=== PATIENT | female | born 1950 | race Caucasian/White ===

== ENCOUNTER 2023-02-24 18:38 | Inpatient (IN) | payer MEDICARE, OTHER, SELFPAY ==
[2023-02-24] VITALS (7 sets, daily range): BP systolic 90–136; BP diastolic 56–89; PULSE 69–98; RESP 16–20; TEMP 36.7–37.8; O2SAT 94–96; BMI 19.4
--- NOTE | ~2023-02-24 | CT_ITS ---
EXAMINATION: CT head/brain wo IV con CLINICAL INFORMATION: Reason for Exam AMS COMPARISON: None. TECHNIQUE: Contiguous axial imaging was performed from the skull base to vertex without intravenous contrast. Sagittal and coronal reformatted images were obtained. This CT examination was performed using dose optimization techniques as appropriate, variously including the following: * Automated exposure control * Adjustment of mA and/or kV according to patient size (this includes techniques or standardized protocols for targeted exams where dose is matched to indication/reason for exam; i.e. extremities or head) Use of iterative reconstruction technique DLP: 666 mGy-cm FINDINGS: No acute osseous or soft tissue abnormality. The mastoid air cells and visualized portions of the paranasal sinuses are well aerated. There is no evidence of acute intracranial hemorrhage or territorial infarction. No abnormal mass effect or midline shift is seen. Bird to white matter differentiation is well preserved. No extra-axial fluid collections are identified. No hydrocephalus. Proportional prominence of the ventricles and sulcal spaces is consistent with moderate volume loss. Patchy periventricular and deep white matter hypoattenuation is consistent with mild small vessel ischemic changes. CT/CT head/brain wo IV con IMPRESSION: No acute intracranial abnormality including hemorrhage, mass effect, hydrocephalus, or acute territorial edematous infarction.
--- NOTE | ~2023-02-24 | XR_ITS ---
EXAMINATION: XR CHEST CLINICAL INFORMATION: Fever. COMPARISON: None available. TECHNIQUE: Frontal view of the chest was obtained. FINDINGS: Normal appearance of the cardiomediastinal silhouette. No focal airspace opacity, pleural effusion or pneumothorax. No pulmonary edema. No acute osseous findings. Visualized upper abdomen is within normal limits. XR/XR chest 1V IMPRESSION: No acute cardiopulmonary findings.
--- NOTE | 2023-02-24 18:51 | ECG_ITS ---
Test Reason : AMS Blood Pressure : / mmHG Vent. Rate : 125 BPM Atrial Rate : 129 BPM P-R Int : 000 ms QRS Dur : 058 ms QT Int : 366 ms P-R-T Axes : -35 035 068 degrees QTc Int : 528 ms Poor data quality Undetermined rhythm Low voltage QRS Cannot rule out Anterior infarct , age undetermined Abnormal ECG No previous ECGs available Repeat EKG Referred By: Samantha Shah Electronically Signed By:WILLEM DIALLO MD
--- NOTE | 2023-02-24 18:55 | ED_ITS ---
HPI - General Adult General Chief complaint: Altered Mental Status Stated complaint: sepsis alert,ethargic,100.8 temp,AMS Time Seen by Provider: 02/24/23 18:40 Source: EMS Mode of arrival: EMS Limitations: no limitations History of Present Illness HPI narrative: Patient comes to the emergency room via ambulance from a longterm facility. Patient had baseline does not talk much, has dementia but at baseline she is able to sit in her chair and speak. Today, the staff noted that the patient is very lethargic, in bed, difficult to arouse. Patient occasionally opens her eyes. Patient is a DNR DNI, no CPAP but do transfer to hospital. Patient is too weak and lethargic to give any history. According to EMS, the patient had a fever earlier today of 101 Related Data Allergies Allergy/AdvReac Type Severity Reaction Status Date / Time No Known Allergies Allergy Verified 02/24/23 19:14 Review of Systems 2 Review of Systems: Yes Unobtainable due to mental condition PMFSH Past Medical History Medical History (Updated 02/24/23 @ 21:18 by Samantha Shah MD) Dementia Social History Social History Advance Directives: No Advance Directives Information Provided: No Physical Exam ED Vital Signs: Vital Signs - 24 hr 02/24/23 19:00 02/24/23 19:22 02/24/23 19:58 Temperature 100.1 F 98.1 F Pulse Rate 92 85 77 Respiratory Rate 18 18 16 Blood Pressure 110/66 136/68 119/71 Pulse Oximetry 94 96 95 Oxygen Delivery Method Room Air Room Air Room Air BMI result Body Mass Index 19.4 Const Other: Appearance: Lethargic, arousable to voice, opens eyes and falls back asleep Eyes: Pupils equal, round and reactive to light. ENT: Pharynx normal. Dry oral mucosa Neck: Normal inspection. Neck supple. No lymph nodes noted. No crepitus CVS: Normal heart rate and rhythm. Pulses normal. Normal S1 and S2 Respiratory: No respiratory distress. Breath sounds normal. No Wheezing. No rales Abdomen: Soft and nontender. No rigidity. No distention. Skin: Skin warm and dry. Normal skin color. Normal skin turgor. Extremities: No lower extremity edema. No Lacerations. No Rash Neuro: Lethargic, unable to participating cranial nerve assessment Psych: calm, charge Medications Administered Generic Name Dose Route Start Last Admin Trade Name Freq PRN Reason Stop Dose Admin Potassium Chloride 10 meq in 100 mls @ 100 mls/hr 02/24/23 20:00 02/24/23 20:02 Potassium Chloride/H20 IV 02/24/23 23:59 100 mls/hr Q1H DHRUV Administration Discontinued Medications Generic Name Dose Route Start Last Admin Trade Name Marina PRN Reason Stop Dose Admin Acetaminophen 650 mg 02/24/23 18:54 02/24/23 19:42 Acetaminophen Supp 650 Mg Supp.Rect AK 02/24/23 18:55 650 mg ONCE ONE Administration Sodium Chloride 2,000 mls @ 999 mls/hr 02/24/23 18:50 02/24/23 19:15 Ns IVCONT 02/24/23 20:50 999 mls/hr .Q2H1M ONE Administration Ceftriaxone Sodium 1 gm/ 50 mls @ 100 mls/hr 02/24/23 19:48 02/24/23 20:49 Sodium Chloride IV 02/24/23 20:17 Infused ONCE ONE Infusion Medical Decision Making Medical Decision Making [facility] Narrative: -at this time, 19:49, we have the lab result available. -my interpretation of labs: White blood cell count within normal limits, lactic acid 2.5. Patient has hypokalemia, hypernatremia, BUN elevated. -patient was repleted with fluids, patient dehydrated, also given IV potassium, urinalysis shows about oxycodone in the urine, no nitrites or leukocyte esterase. Given the patient's fever, we will go ahead and treat [place] antibiotics. Patient was given 1 dose of IV ceftriaxone. -interpretation of chest x-rays: No pneumonia -urinalysis very questionable for urinary tract infection. Given patient's symptoms and no other source of infection, we will go ahead and treat with antibiotics and IV fluids. -I discussed the patient with Dr. Weston, patient being admitted Differential Diagnosis Differential Diagnoses: The differential diagnosis associated with the presentation includes (UTI, pneumonia, TIA, CVA) Admission/Observation Consideration of admission/observation: Escalation of care including admission/observation considered Consult Healthcare Provider Management of the patient was discussed with: Hospitalist Lab Data [facility] Lab Attestation statement: I reviewed the patient's lab results. 02/24/23 19:07 02/24/23 19:07 Labs: Lab Results 02/24/23 02/24/2323 Range/Units 19:07 19:08 19:10 WBC 9.0 (4.8-10.8) X10*3/uL RBC 3.94 L (4.20-5.50) X10*6/uL Hgb 13.0 (12.0-16.0) g/dl Hct 39.5 (37.0-47.0) % MCV 100.3 H (80.0-98.0) fL MCH 33.0 (27.0-33.0) pg MCHC 32.9 (31.0-35.0) g/dl RDW 12.5 (11.0-16.0) % Plt Count 250 (160-400) X10*3/uL MPV 11.4 (9.4-12.3) fL Immature Gran % (Auto) 0.3 (0.0-0.4) % Neut % (Auto) 79.2 H (45-73) % Lymph % (Auto) 13.5 L (20-40) % [place] % (Auto) 6.2 (2-11) % Eos % (Auto) 0.1 (0-4) % Baso % (Auto) 0.7 (0-2) % Lymph # (Auto) 1.2 (1.2-4.9) X10*3/uL [place] # (Auto) 0.6 (0.1-1.2) X10*3/uL Eos # (Auto) 0.0 (0.0-0.4) X10*3/uL Baso # (Auto) 0.1 (0.0-0.2) X10*3/uL Abs Immat Gran (auto) 0.03 (0.00-0.03) X10*3/uL Absolute Neuts (auto) 7.1 (2.0-8.3) x10*3/uL Absolute Nucleated RBC 0.000 (0.0-0.012) X10*3/uL Nucleated RBC % (auto) 0.0 (0.0-0.2) /100WBC PT 13.1 (11.1-13.3) SEC INR 1.1 (0.9-1.1) VBG pH (7.32-7.43) VBG pCO2 mmHg VBG pO2 mmHg VBG HCO3 (22-26) mmol/L VBG O2 Saturation % VBG Base Excess mmol/L Sodium 148 H (135-145) mmol/L Potassium 3.0 L (3.3-5.1) mmol/L Chloride 116 H (96-108) mmol/L Carbon Dioxide 25 (22-29) mmol/L Anion Gap 10 L (12-20) BUN 49 H (9-16) mg/dL Creatinine 0.72 (0.5-1.4) mg/dL Estim Creat Clear Calc 62.6 Estimated GFR > 60 Random Glucose 185 H (60-115) mg/dL Lactic Acid 2.5 H* (0.5-2.0) mmol/L Calcium 8.7 (8.4-10.2) mg/dL Magnesium 2.6 (1.6-2.6) mg/dL Total Bilirubin 1.2 H (0.0-1.0) mg/dL Direct Bilirubin 0.3 (0.0-0.5) mg/dL AST 36 H (5-31) U/L ALT 24 (0-31) U/L Alkaline Phosphatase 61 (39-117) U/L Ammonia 34 (13-55) umol/L Troponin I High Sens 10.3 (<3.5-17.0) ng/L Total Protein 6.3 L (6.5-8.0) g/dL Albumin 3.7 (3.5-5.0) g/dL Lipase 24 (8-78) U/L Urine Color Yellow Urine Appearance Clear Urine pH 6.0 (5.0-9.0) Ur Specific [place] >= 1.030 H (1.005-1.025) Urine Protein Trace (Neg-Trace) mg/dL Urine Glucose (UA) Negative (Negative) mg/dL Urine Ketones Trace (Negative) mg/dL Urine Blood Trace H (Negative) Urine Nitrite Negative (Negative) Ur Leukocyte Esterase Negative (Negative) Urine RBC 6-10 H (0-2) /HPF Urine WBC 6-10 H (0-5) /HPF Ur Squamous Epith Cells 0-2 (0-2) /HPF Urine Bacteria None Seen (None Seen) Hyaline Casts 0-2 (0-2) /LPF Urine Opiates Screen Not Detected (Not Detect) Urine Fentanyl Screen Not Detected (Not Detect) Ur Barbiturates Screen Not Detected (Not Detect) Ur Phencyclidine Scrn Not Detected (Not Detect) Ur Amphetamines Screen Not Detected (Not Detect) U Benzodiazepines Scrn Not Detected (Not Detect) Urine Cocaine Screen Not Detected (Not Detect) U Marijuana (THC) Screen Not Detected (Not Detect) COVID-19 (ADY) Negative (Negative) COVID-19 Clin Com See Note Influenza Type A (KAYCEE) Negative (Negative) Influenza Type B (KAYCEE) Negative (Negative) Influenza A & B Note See Note 02/24/23 Range/Units 19:14 WBC (4.8-10.8) X10*3/uL RBC (4.20-5.50) X10*6/uL Hgb (12.0-16.0) g/dl Hct (37.0-47.0) % MCV (80.0-98.0) fL MCH (27.0-33.0) pg MCHC (31.0-35.0) g/dl RDW (11.0-16.0) % Plt Count (160-400) X10*3/uL MPV (9.4-12.3) fL Immature Gran % (Auto) (0.0-0.4) % Neut % (Auto) (45-73) % Lymph % (Auto) (20-40) % [place] % (Auto) (2-11) % Eos % (Auto) (0-4) % Baso % (Auto) (0-2) % Lymph # (Auto) (1.2-4.9) X10*3/uL [place] # (Auto) (0.1-1.2) X10*3/uL Eos # (Auto) (0.0-0.4) X10*3/uL Baso # (Auto) (0.0-0.2) X10*3/uL Abs Immat Gran (auto) (0.00-0.03) X10*3/uL Absolute Neuts (auto) (2.0-8.3) x10*3/uL Absolute Nucleated RBC (0.0-0.012) X10*3/uL Nucleated RBC % (auto) (0.0-0.2) /100WBC PT (11.1-13.3) SEC INR (0.9-1.1) VBG pH 7.53 H (7.32-7.43) VBG pCO2 30 mmHg VBG pO2 148 mmHg VBG HCO3 26 (22-26) mmol/L VBG O2 Saturation 100.0 % VBG Base Excess 4.1 mmol/L Sodium (135-145) mmol/L Potassium (3.3-5.1) mmol/L Chloride (96-108) mmol/L Carbon Dioxide (22-29) mmol/L Anion Gap (12-20) BUN (9-16) mg/dL Creatinine (0.5-1.4) mg/dL Estim Creat Clear Calc Estimated GFR Random Glucose (60-115) mg/dL Lactic Acid (0.5-2.0) mmol/L Calcium (8.4-10.2) mg/dL Magnesium (1.6-2.6) mg/dL Total Bilirubin (0.0-1.0) mg/dL Direct Bilirubin (0.0-0.5) mg/dL AST (5-31) U/L ALT (0-31) U/L Alkaline Phosphatase (39-117) U/L Ammonia (13-55) umol/L Troponin I High Sens (<3.5-17.0) ng/L Total Protein (6.5-8.0) g/dL Albumin (3.5-5.0) g/dL Lipase (8-78) U/L Urine Color Urine Appearance Urine pH (5.0-9.0) Ur Specific [place] (1.005-1.025) Urine Protein (Neg-Trace) mg/dL Urine Glucose (UA) (Negative) mg/dL Urine Ketones (Negative) mg/dL Urine Blood (Negative) Urine Nitrite (Negative) Ur Leukocyte Esterase (Negative) Urine RBC (0-2) /HPF Urine WBC (0-5) /HPF Ur Squamous Epith Cells (0-2) /HPF Urine Bacteria (None Seen) Hyaline Casts (0-2) /LPF Urine Opiates Screen (Not Detect) Urine Fentanyl Screen (Not Detect) Ur Barbiturates Screen (Not Detect) Ur Phencyclidine Scrn (Not Detect) Ur Amphetamines Screen (Not Detect) U Benzodiazepines Scrn (Not Detect) Urine Cocaine Screen (Not Detect) U Marijuana (THC) Screen (Not Detect) COVID-19 (ADY) (Negative) COVID-19 Clin Com Influenza Type A (KAYCEE) (Negative) Influenza Type B (KAYCEE) (Negative) Influenza A & B Note Independent Interpretation I performed an independent interpretation of an: CT Scan (Med the patient of CT scan of the head, no intracranial bleed) Radiology Impression Discussion of test interpretation with radiology: I have reviewed the radiologist's reading. Radiologist Impression: No acute osseous or soft tissue abnormality. The mastoid air cells and visualized portions of the paranasal sinuses are well aerated. There is no evidence of acute intracranial hemorrhage or territorial infarction. No abnormal mass effect or midline shift is seen. Bird to white matter differentiation is well preserved. No extra-axial fluid collections are identified. No hydrocephalus. Proportional prominence of the ventricles and sulcal spaces is consistent with moderate volume loss. Patchy periventricular and deep white matter hypoattenuation is consistent with mild small vessel ischemic changes. CT/CT head/brain wo IV con IMPRESSION: No acute intracranial abnormality including hemorrhage, mass effect, hydrocephalus, or acute territorial edematous infarction Normal appearance of the cardiomediastinal silhouette. No focal airspace opacity, pleural effusion or pneumothorax. No pulmonary edema. No acute osseous findings. Visualized upper abdomen is within normal limits. XR/XR chest 1V IMPRESSION: No acute cardiopulmonary findings. Critical Care Time Critical Care Time Critical Care Time: Yes Total Critical Care Time: 75 Attestation: I have personally provided critical care time. Time includes review of lab data, radiology results, discussion with consultants, and monitoring for potential decompensation. Intervention performed as documented. Discharge Plan Discharge Clinical Impression: Altered mental status, UTI (urinary tract infection), Acute hypokalemia, Acute hypernatremia, Acute dehydration Patient Disposition: Admitted As Inpatient
--- NOTE | 2023-02-24 18:56 | PC.NURSE ---
sepsis alert called overhead. pt meeting initial criteria of elevated temperature and hypotensive upon ems arrival to scene.
--- NOTE | 2023-02-24 19:00 | PC.NURSE ---
pt leona from [facility] for elevated temperature and increased altered mental status. according to [facility] staff pt is altered at baseline with dementia. upon arrival pt was warm to touch with rectal temperature of 100.1. pt unable to respond verbally at this time. pt has dementia at baseline. pt normal sinus on tele -. provider at bedside to assess pt.
--- NOTE | 2023-02-24 19:11 | PC.NURSE ---
pt straight cathed at this time, pt tolerated well. 300ml of dark yellow urine drained at this time.
[2023-02-24] MEDS: 0.9 % Sodium Chloride 2,000 ML 999 ML IVCONT (19:15)
[2023-02-24 19:17] LABS: MANUAL DIFF FLAG NO
[2023-02-24 19:19] LABS: Appearance Urine Clear; Color Urine Yellow; Glucose Urine UA Negative (Negative); Leukocyte Esterase Urine Negative (Negative); Nitrite Urine Negative (Negative); Specific Gravity - Urine >= 1.030 (1.005-1.025); UMIC TRIGGER UACC YES; Urine Blood Trace (Negative); Urine Ketones Trace mg/dL (Negative); Urine Protein Trace mg/dL (Neg-Trace)
[2023-02-24 19:19] LABS: Basophils Absolute Auto 0.1 X10*3/uL (0.0-0.2); Basophils Percent Auto 0.7 % (0-2); Eosinophils Percent Auto 0.1 % (0-4); Hematocrit 39.5 % (37.0-47.0); Imm Gran Abs Auto 0.03 X10*3/uL (0.00-0.03); Imm Gran Pct Auto 0.3 % (0.0-0.4); Lymphocytes Absolute Auto 1.2 X10*3/uL (1.2-4.9); Lymphocytes Percent Auto 13.5 % (20-40); Mean Corpuscular HGB Conc 32.9 g/dl (31.0-35.0); Mean Corpuscular Volume 100.3 fL (80.0-98.0); Mean Platelet Volume 11.4 fL (9.4-12.3); Monocytes Absolute Auto 0.6 X10*3/uL (0.1-1.2); Monocytes Percent Auto 6.2 % (2-11); Neutrophils Absolute Auto 7.1 x10*3/uL (2.0-8.3); Neutrophils Percent Auto 79.2 % (45-73); Platelet Count 250 X10*3/uL (160-400); Red Blood Count 3.94 X10*6/uL (4.20-5.50); Red Cell Distribution Width 12.5 % (11.0-16.0)
[2023-02-24 19:20] LABS: Venous Blood Gas Refer to POC result
[2023-02-24 19:20] LABS: VBG Base Excess 4.1 mmol/L; VBG HCO3 26 mmol/L (22-26); VBG pCO2 30 mmHg; VBG pH 7.53 (7.32-7.43); VBG pO2 148 mmHg
[2023-02-24 19:24] LABS: INTERNATIONAL NORM RATIO 1.1 (0.9-1.1); Prothrombin Time 13.1 SEC (11.1-13.3)
[2023-02-24 19:26] LABS: Ammonia 34 umol/L (13-55)
[2023-02-24 19:34] LABS: COVID-19 Test Negative (Negative); IDNOW Serial# 9DB6401D; IDNOW Serial# BCCEAD1C; Influenza A Negative (Negative); Influenza B2 Negative (Negative)
[2023-02-24 19:34] LABS: Bacteria Urine None Seen (None Seen); Hyaline Casts Urine 0-2 /LPF (0-2); Squamous Epithelial Cell Urine 0-2 /HPF (0-2); UACC Culture Trigger YES
[2023-02-24 19:35] LABS: Lactic Acid 2.5 mmol/L (0.5-2.0)
[2023-02-24 19:36] LABS: Alanine Aminotransferase 24 U/L (0-31); Albumin Level 3.7 g/dL (3.5-5.0); Alkaline Phosphatase 61 U/L (39-117); Anion Gap 10 (12-20); Aspartate Amino Transferase 36 U/L (5-31); Bilirubin Direct 0.3 mg/dL (0.0-0.5); Bilirubin Total 1.2 mg/dL (0.0-1.0); Blood Urea Nitrogen 49 mg/dL (9-16); Calcium 8.7 mg/dL (8.4-10.2); Carbon Dioxide 25 mmol/L (22-29); Chloride 116 mmol/L (96-108); Creatinine Clr Calc Pharmacy 62.6; Estimated Glomerular Filt Rate > 60; Glucose Random 185 mg/dL (60-115); Lipase 24 U/L (8-78); Magnesium 2.6 mg/dL (1.6-2.6); Sodium 148 mmol/L (135-145); Total Protein 6.3 g/dL (6.5-8.0)
[2023-02-24] MEDS: Acetaminophen Supp 650 MG SUPP.RECT PR (19:42)
[2023-02-24 19:43] LABS: Troponin-I High Sensitivity 10.3 ng/L (<3.5-17.0)
--- NOTE | 2023-02-24 19:58 | PC.NURSE ---
hour one sepsis alert called over head, vss.
[2023-02-24] MEDS: cefTRIAXone sodium 1 GM in 0.9 % Sodium Chloride 50 ML IV (20:02)
[2023-02-24] MEDS: Potassium Chloride/H20 10 MEQ/100 ML PIGGYBACK 100 MEQ IV ×4 (20:02→23:32)
--- NOTE | 2023-02-24 20:05 | PC.NURSE ---
pt medicated per mar, pt tolerating well.
[2023-02-24 20:50] LABS: Amphetamine Screen Urine Not Detected (Not Detect); Barbiturates, Urine Not Detected (Not Detect); Benzodiazepines Screen Urine Not Detected (Not Detect); Cannabinoid Screen Urine Not Detected (Not Detect); Cocaine Screen Urine Not Detected (Not Detect); Fentanyl, urine Not Detected (Not Detect); Opiate Screen Urine Not Detected (Not Detect); Phencyclidine Screen Urine Not Detected (Not Detect)
--- NOTE | 2023-02-24 20:57 | PC.NURSE ---
sepsis alert hour two, vss.
[2023-02-24 21:09] LABS: TSH reflex Free T4 25.29 uIU/mL (0.32-4.0)
[2023-02-24 21:15] LABS: Reflex Lactate? Lactic Acid Added
--- NOTE | 2023-02-24 21:17 | P.HPHOSP_ITS ---
History of Present Illness Date of Service: 02/24/23 Chief Complaint: ams, fever 72F PMH alzheimers dementia (director long term care resident of memory unit), hypothryoid presented with fever and ams. brought in [place] for ams, lethargy, fever 101, for one day. at baseline patient is minimally verbal, able to sit up in chair, alert. on presentation was lethargic, difficult to arouse. in ED noted to be dehydrated with bun 49 cr 0.72, sodium 148, elevated tsh 25 (synthroid recently decreased from 100 to 75mcg), ua with wbc, rbc, negative nitrite and bacturia. cxr and cth unremarkable, mental status improved with hydration. Review of Systems 2 Review of Systems: Yes Unobtainable due to mental condition [facility] Medical History Dementia Social History Advance Directives: No Advance Directives Information Provided: No Meds Allergies Allergy/AdvReac Type Severity Reaction Status Date / Time No Known Allergies Allergy Verified 02/24/23 19:14 Active Medications: Current Medications Enoxaparin Sodium (Enoxaparin Sodium 40 Mg/0.4 Ml Syringe) 40 mg SUBCUT Q24H [facility] Potassium Chloride (Potassium Chloride/H20) 10 meq in 100 mls @ 100 mls/hr IV Q1H DHRUV Stop: 02/24/23 23:59 Last Admin: 02/24/23 20:59 Dose: 100 mls/hr Ceftriaxone Sodium 1 gm/ (Sodium Chloride) 50 mls @ 100 mls/hr IV Q24H [facility] Levothyroxine Sodium (Levothyroxine Sodium 100 Mcg Tablet) 100 mcg PO DAILY@0600 [facility] Sodium Chloride (0.9 % Sodium Chloride Flush 3 Ml Syringe) 3 ml IVFLUSH QSHIFT [facility] Physical Exam 2 Vital Signs and Narrative: Vital Signs: Last Vital Signs Temp 98.2 F 02/24/23 20:58 Pulse 84 02/24/23 21:02 Resp 18 02/24/23 21:02 BP 125/81 02/24/23 21:02 Pulse Ox 95 02/24/23 21:02 O2 Del Method Room Air 02/24/23 21:02 BMI result Body Mass Index 19.4 General: lethargic, oriented to name only Resp: CTA bilateral, no accessory muscles used CVS: S1,S2,RRR GI: soft, non tender, non distended Results Labs 02/24/23 19:07 02/24/23 19:07 Labs: Laboratory Results - last 24 hr 02/24/23 02/24/23 02/24/23 19:07 19:08 19:10 MCV 100.3 H MCH 33.0 MCHC 32.9 RDW 12.5 Plt Count 250 MPV 11.4 Immature Gran % (Auto) 0.3 Neut % (Auto) 79.2 H Lymph % (Auto) 13.5 L [place] % (Auto) 6.2 Eos % (Auto) 0.1 Baso % (Auto) 0.7 Lymph # (Auto) 1.2 [place] # (Auto) 0.6 Eos # (Auto) 0.0 Baso # (Auto) 0.1 Abs Immat Gran (auto) 0.03 Absolute Neuts (auto) 7.1 Absolute Nucleated RBC 0.000 Nucleated RBC % (auto) 0.0 PT 13.1 INR 1.1 VBG pH VBG pCO2 VBG pO2 VBG HCO3 VBG O2 Saturation VBG Base Excess Anion Gap 10 L Estim Creat Clear Calc 62.6 Estimated GFR > 60 Random Glucose 185 H Lactic Acid 2.5 H* Calcium 8.7 Magnesium 2.6 Total Bilirubin 1.2 H Direct Bilirubin 0.3 AST 36 H ALT 24 Alkaline Phosphatase 61 Ammonia 34 Total Protein 6.3 L Albumin 3.7 Lipase 24 TSH 25.29 H Urine Color Yellow Urine Appearance Clear Urine pH 6.0 Ur Specific [place] >= 1.030 H Urine Protein Trace Urine Glucose (UA) Negative Urine Ketones Trace Urine Blood Trace H Urine Nitrite Negative Ur Leukocyte Esterase Negative Urine RBC 6-10 H Urine WBC 6-10 H Ur Squamous Epith Cells 0-2 Urine Bacteria None Seen Hyaline Casts 0-2 Urine Opiates Screen Not Detected Urine Fentanyl Screen Not Detected Ur Barbiturates Screen Not Detected Ur Phencyclidine Scrn Not Detected Ur Amphetamines Screen Not Detected U Benzodiazepines Scrn Not Detected Urine Cocaine Screen Not Detected U Marijuana (THC) Screen Not Detected COVID-19 (ADY) Negative COVID-19 Clin Com See Note Influenza Type A (KAYCEE) Negative Influenza Type B (KAYCEE) Negative Influenza A & B Note See Note 02/24/23 19:14 MCV MCH MCHC RDW Plt Count MPV Immature Gran % (Auto) Neut % (Auto) Lymph % (Auto) [place] % (Auto) Eos % (Auto) Baso % (Auto) Lymph # (Auto) [place] # (Auto) Eos # (Auto) Baso # (Auto) Abs Immat Gran (auto) Absolute Neuts (auto) Absolute Nucleated RBC Nucleated RBC % (auto) PT INR VBG pH 7.53 H VBG pCO2 30 VBG pO2 148 VBG HCO3 26 VBG O2 Saturation 100.0 VBG Base Excess 4.1 Anion Gap Estim Creat Clear Calc Estimated GFR Random Glucose Lactic Acid Calcium Magnesium Total Bilirubin Direct Bilirubin AST ALT Alkaline Phosphatase Ammonia Total Protein Albumin Lipase TSH Urine Color Urine Appearance Urine pH Ur Specific [place] Urine Protein Urine Glucose (UA) Urine Ketones Urine Blood Urine Nitrite Ur Leukocyte Esterase Urine RBC Urine WBC Ur Squamous Epith Cells Urine Bacteria Hyaline Casts Urine Opiates Screen Urine Fentanyl Screen Ur Barbiturates Screen Ur Phencyclidine Scrn Ur Amphetamines Screen U Benzodiazepines Scrn Urine Cocaine Screen U Marijuana (THC) Screen COVID-19 (ADY) COVID-19 Clin Com Influenza Type A (KAYCEE) Influenza Type B (KAYCEE) Influenza A & B Note Imaging Radiologist's Impressions: Impressions Chest X-Ray 02/24/23 19:20 IMPRESSION: No acute cardiopulmonary findings. Head CT 02/24/23 19:38 IMPRESSION: No acute intracranial abnormality including hemorrhage, mass effect, hydrocephalus, or acute territorial edematous infarction. Assessment and Plan (1) Acute dehydration: Status: Acute Plan 72F [facility] alzheimers dementia (director long term care resident of memory unit), hypothryoid presented with fever and ams Acute metabolic encephalopathy and fever No obvious source of sepsis, lactic acidosis due to dehydration not sepsis ? UTI versus unspecified viral syndrome Complicated by dehydration, hypernatremia Empiric ceftriaxone, follow-up cultures Received isotonic fluids in ED, will start hypotonic maintenance Monitor BMP Alzheimer's dementia Will hold mood stabilizers while mental status not at baseline Hypothyroid with elevated TSH Will increase Synthroid back up to 100 mcg DVT prophylaxis with Lovenox DNR/DNI Patient with significant alteration in mental status and dehydration, expected require at least 2 midnights in patient for rehydration and close monitoring given frailty and Alzheimer's Quality Stroke Does the patient have a stroke diagnosis?: No VTE Prior VTE?: No VTE Risk Level:: Medical - moderate - high VTE Device Contraindication: Treatment Not Indicated VTE Drug Contraindication: N/A - Med Ordered
[2023-02-24 21:46] LABS: ~Lactic Acid-LAB USE ONLY 0.8 mmol/L (0.5-2.0)
[2023-02-24] MEDS: Sodium Chloride 0.45 % 1,000 ML 80 ML IVCONT (22:14)
[2023-02-24 22:59] LABS: Free T4 (Free Thyroxine) 0.55 ng/dL (0.71-1.85)
--- NOTE | 2023-02-24 22:59 | PC.NURSE ---
vital sign at 2200-second BP after fluid completion.
--- NOTE | 2023-02-25 01:19 | PC.NURSE ---
pt resting comfortably in stretcher, given warm blanket.
--- NOTE | 2023-02-25 05:30 | PC.NURSE ---
pt sleeping, respirations even and unlabored.
--- NOTE | 2023-02-25 06:06 | PC.NURSE ---
pt health care proxy on phone, pt health care proxy stating pt is going to be admitted to [facility] in [place] on admission.
--- NOTE | 2023-02-25 06:23 | PC.NURSE ---
pt cleaned and repositioned in bed at this time. pure wick placed.
[2023-02-25 06:26] VITALS: BP 132/73; PULSE 93; RESP 17; O2SAT 98
[2023-02-25] MEDS: Levothyroxine Sodium 100 MCG TABLET PO (06:26)
--- NOTE | 2023-02-25 06:26 | PC.NURSE ---
this rn medicated pt per may. pt tolerated medication well with apple sauce, pt is a dependant feed.
[2023-02-25 07:44] VITALS: BP 105/68; PULSE 64; RESP 18; TEMP 36.3; O2SAT 96
--- NOTE | 2023-02-25 08:00 | HO.PM.IMPN ---
Subjective Subjective Date of Service: 02/26/23 Interval History: f/u on metabolic encephalopathy, fever Physical Exam Vital Signs: Vital Signs: Last Vital Signs Temp 97.4 F 02/25/23 07:44 Pulse 64 02/25/23 07:44 Resp 18 02/25/23 07:44 BP 105/68 02/25/23 07:44 Pulse Ox 96 02/25/23 07:44 O2 Del Method Room Air 02/25/23 07:44 BMI result Body Mass Index 19.4 Const: Other: General: confused Resp: CTA bilateral CVS: S1,S2,RRR GI: +BS, NT, no distention Skin: No rash Neuro: motor grossly intact Psych: appropriate affect Objective Data Active Medications Enoxaparin Sodium (Enoxaparin Sodium 40 Mg/0.4 Ml Syringe) 40 mg SUBCUT Q24H [facility] Ceftriaxone Sodium 1 gm/ (Sodium Chloride) 50 mls @ 100 mls/hr IV Q24H [facility] Sodium Chloride (Sodium Chloride 0.45 %) 1,000 mls @ 80 mls/hr IVCONT .[id number] [facility] Last Admin: 02/24/23 22:14 Dose: 80 mls/hr Documented By: NISHA Levothyroxine Sodium (Levothyroxine Sodium 100 Mcg Tablet) 100 mcg PO DAILY@0600 [facility] Last Admin: 02/25/23 06:26 Dose: 100 mcg Documented By: NISHA Sodium Chloride (0.9 % Sodium Chloride Flush 3 Ml Syringe) 3 ml IVFLUSH QSHIFT [facility] Last Admin: 02/25/23 00:04 Dose: Not Given Documented By: NISHA Non-Admin Reason: IV Running Labs 02/25/23 09:54 02/26/23 08:31 Labs: Laboratory Results - last 24 hr 02/24/23 02/24/23 02/24/23 19:07 19:08 19:10 MCV 100.3 H MCH 33.0 MCHC 32.9 RDW 12.5 Plt Count 250 MPV 11.4 Immature Gran % (Auto) 0.3 Neut % (Auto) 79.2 H Lymph % (Auto) 13.5 L [place] % (Auto) 6.2 Eos % (Auto) 0.1 Baso % (Auto) 0.7 Lymph # (Auto) 1.2 [place] # (Auto) 0.6 Eos # (Auto) 0.0 Baso # (Auto) 0.1 Abs Immat Gran (auto) 0.03 Absolute Neuts (auto) 7.1 Absolute Nucleated RBC 0.000 Nucleated RBC % (auto) 0.0 PT 13.1 INR 1.1 VBG pH VBG pCO2 VBG pO2 VBG HCO3 VBG O2 Saturation VBG Base Excess Anion Gap 10 L Estim Creat Clear Calc 62.6 Estimated GFR > 60 Random Glucose 185 H Lactic Acid 2.5 H* Lactic Acid F/U @ 2Hr Calcium 8.7 Magnesium 2.6 Total Bilirubin 1.2 H Direct Bilirubin 0.3 AST 36 H ALT 24 Alkaline Phosphatase 61 Ammonia 34 Total Protein 6.3 L Albumin 3.7 Lipase 24 TSH 25.29 H Free T4 0.55 L Urine Color Yellow Urine Appearance Clear Urine pH 6.0 Ur Specific [place] >= 1.030 H Urine Protein Trace Urine Glucose (UA) Negative Urine Ketones Trace Urine Blood Trace H Urine Nitrite Negative Ur Leukocyte Esterase Negative Urine RBC 6-10 H Urine WBC 6-10 H Ur Squamous Epith Cells 0-2 Urine Bacteria None Seen Hyaline Casts 0-2 Urine Opiates Screen Not Detected Urine Fentanyl Screen Not Detected Ur Barbiturates Screen Not Detected Ur Phencyclidine Scrn Not Detected Ur Amphetamines Screen Not Detected U Benzodiazepines Scrn Not Detected Urine Cocaine Screen Not Detected U Marijuana (THC) Screen Not Detected COVID-19 (ADY) Negative COVID-19 Clin Com See Note Influenza Type A (KAYCEE) Negative Influenza Type B (KAYCEE) Negative Influenza A & B Note See Note 02/24/23 02/24/23 19:14 21:28 MCV MCH MCHC RDW Plt Count MPV Immature Gran % (Auto) Neut % (Auto) Lymph % (Auto) [place] % (Auto) Eos % (Auto) Baso % (Auto) Lymph # (Auto) [place] # (Auto) Eos # (Auto) Baso # (Auto) Abs Immat Gran (auto) Absolute Neuts (auto) Absolute Nucleated RBC Nucleated RBC % (auto) PT INR VBG pH 7.53 H VBG pCO2 30 VBG pO2 148 VBG HCO3 26 VBG O2 Saturation 100.0 VBG Base Excess 4.1 Anion Gap Estim Creat Clear Calc Estimated GFR Random Glucose Lactic Acid Lactic Acid F/U @ 2Hr 0.8 Calcium Magnesium Total Bilirubin Direct Bilirubin AST ALT Alkaline Phosphatase Ammonia Total Protein Albumin Lipase TSH Free T4 Urine Color Urine Appearance Urine pH Ur Specific [place] Urine Protein Urine Glucose (UA) Urine Ketones Urine Blood Urine Nitrite Ur Leukocyte Esterase Urine RBC Urine WBC Ur Squamous Epith Cells Urine Bacteria Hyaline Casts Urine Opiates Screen Urine Fentanyl Screen Ur Barbiturates Screen Ur Phencyclidine Scrn Ur Amphetamines Screen U Benzodiazepines Scrn Urine Cocaine Screen U Marijuana (THC) Screen COVID-19 (ADY) COVID-19 Clin Com Influenza Type A (KAYCEE) Influenza Type B (KAYCEE) Influenza A & B Note Assessment and Plan (1) Metabolic encephalopathy: Status: Acute Plan 72F PMH alzheimers dementia (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 UTI versus unspecified viral syndrome Complicated by dehydration, hypernatremia Empiric ceftriaxone, follow-up cultures Received isotonic fluids in ED, will start hypotonic maintenance Monitor BMP Alzheimer's dementia Will hold mood stabilizers while mental status not at baseline Hypothyroid with elevated TSH Will increase Synthroid back up to 100 mcg DVT prophylaxis with Lovenox DNR/DNI Patient with significant alteration in mental status and dehydration, expected require at least 2 midnights in patient for rehydration and close monitoring given frailty and Alzheimer's Quality Stroke Does the patient have a stroke diagnosis?: No VTE Prior VTE?: No VTE Risk Level:: Medical - moderate - high VTE Device Contraindication: Treatment Not Indicated VTE Drug Contraindication: N/A - Med Ordered
[2023-02-25] MEDS: Escitalopram Oxalate 20 MG TABLET PO (09:51)
[2023-02-25] MEDS: Enoxaparin Sodium 40 MG/0.4 ML SYRINGE SUBCUT (09:53)
[2023-02-25 10:18] LABS: Hematocrit 39.9 % (37.0-47.0); Mean Corpuscular HGB Conc 32.6 g/dl (31.0-35.0); Mean Corpuscular Hemoglobin 32.8 pg (27.0-33.0); Mean Corpuscular Volume 100.8 fL (80.0-98.0); Mean Platelet Volume 11.6 fL (9.4-12.3); Platelet Count 234 X10*3/uL (160-400); Red Blood Count 3.96 X10*6/uL (4.20-5.50); Red Cell Distribution Width 12.3 % (11.0-16.0); White Blood Count 10.6 X10*3/uL (4.8-10.8)
[2023-02-25] MEDS: Sodium Chloride 0.45 % 1,000 ML 80 ML IVCONT ×2 (10:28→22:24)
[2023-02-25 10:49] LABS: Alanine Aminotransferase 26 U/L (0-31); Albumin Level 3.6 g/dL (3.5-5.0); Alkaline Phosphatase 57 U/L (39-117); Anion Gap 11 (12-20); Aspartate Amino Transferase 34 U/L (5-31); Bilirubin Direct 0.3 mg/dL (0.0-0.5); Bilirubin Total 1.3 mg/dL (0.0-1.0); Blood Urea Nitrogen 33 mg/dL (9-16); Calcium 8.5 mg/dL (8.4-10.2); Carbon Dioxide 23 mmol/L (22-29); Chloride 115 mmol/L (96-108); Creatinine Clr Calc Pharmacy 86.7; Estimated Glomerular Filt Rate > 60; Glucose Fasting 145 mg/dL (60-99); Potassium 3.4 mmol/L (3.3-5.1); Sodium 146 mmol/L (135-145)
--- NOTE | 2023-02-25 12:22 | MHC.CM.PN ---
Addendum entered by Bridget Marques 02/25/23 14:24: [facility] confirmed that they will accept the patient for LTC, when discharged. Original Note: IMM 02/25/23 Information gathered by interview of Yudi Chavez and the EMR. Female 72yrs DX UTI+ Dehydration. The Patient with Alzheimers lives at the [facility] memory unit (Plan was STR). She was sent to [facility] for a Temp of 101. Patient was ambulatory in January 04 sent to [place] [id number] for dehydration. She is now dependent with ADLs and all functional mobility. Per S.O., Kathy Patient ran out of Medicare days 02/25/23. The process of securing a LTC bed is in progress. [facility] is working towards admission. All Clinical info and financial documents have been sent to [facility]. T/W contacted Cecilia in admissions. She planned to reach out to Daisy Baugh, Billing for [facility]. We are waiting to hear back from Cecilia on the determination of possible transfer at discharge to [facility] from [facility]. DP [facility] vs LTC @ [facility] via BLS.
--- NOTE | 2023-02-25 14:30 | PHA.MEDREC ---
Pharmacy Consult ? Medication Reconciliation Pharmacy has completed the medication reconciliation. Finally able to speak to [facility] after calling 6-8 times today. patient on levothyroxine 75 at facility, escitalopram 20mg and olanzapine prn
[2023-02-25 16:00] VITALS: BP 103/69; PULSE 73; RESP 14; TEMP 36.8; O2SAT 96
[2023-02-25] MEDS: cefTRIAXone sodium 1 GM in 0.9 % Sodium Chloride 50 ML IV (19:24)
[2023-02-25 19:36] VITALS: BP 109/64; PULSE 75; RESP 19; TEMP 36.1; O2SAT 96
[2023-02-26 03:17] VITALS: BP 140/65; PULSE 72; RESP 16; TEMP 36.2; O2SAT 94
[2023-02-26] MEDS: Levothyroxine Sodium 100 MCG TABLET PO (05:22)
[2023-02-26 07:41] VITALS: BP 121/74; PULSE 76; RESP 18; TEMP 36.6; O2SAT 95
[2023-02-26] MEDS: Enoxaparin Sodium 40 MG/0.4 ML SYRINGE SUBCUT (07:46)
[2023-02-26] MEDS: Escitalopram Oxalate 20 MG TABLET PO (07:46)
[2023-02-26 09:04] LABS: Anion Gap 11 (12-20); Blood Urea Nitrogen 21 mg/dL (9-16); Calcium 8.6 mg/dL (8.4-10.2); Carbon Dioxide 22 mmol/L (22-29); Chloride 108 mmol/L (96-108); Creatinine Clr Calc Pharmacy 77.8; Estimated Glomerular Filt Rate > 60; Glucose Random 95 mg/dL (60-115); Potassium 3.3 mmol/L (3.3-5.1); Sodium 138 mmol/L (135-145)
--- NOTE | 2023-02-26 09:50 | P.PNIM_ITS ---
Subjective Subjective Date of Service: 02/26/23 Interval History: f/u encephalopathy, still confused but proably her baseline, no fver, labs look favorable Physical Exam 2 Vital Signs: Vital Signs: Last Vital Signs Temp 97.9 F 02/26/23 07:41 Pulse 76 02/26/23 07:41 Resp 18 02/26/23 07:41 BP 121/74 02/26/23 07:41 Pulse Ox 95 02/26/23 07:41 O2 Del Method Room Air 02/26/23 07:41 BMI result Body Mass Index 19.4 Const: Other: General: confused Resp: CTA bilateral CVS: S1,S2,RRR GI: +BS, NT, no distention Skin: No rash Neuro: motor grossly intact Psych: appropriate affect Objective Data Active Medications Enoxaparin Sodium (Enoxaparin Sodium 40 Mg/0.4 Ml Syringe) 40 mg SUBCUT Q24H [facility] Last Admin: 02/26/23 07:46 Dose: 40 mg Documented By: ARMANDO Escitalopram Oxalate (Escitalopram Oxalate 20 Mg Tablet) 20 mg PO DAILY [facility] Last Admin: 02/26/23 07:46 Dose: 20 mg Documented By: ARMANDO Ceftriaxone Sodium 1 gm/ (Sodium Chloride) 50 mls @ 100 mls/hr IV Q24H [facility] Last Infusion: 02/25/23 20:00 Dose: Infused Documented By: CASTILM Sodium Chloride (Sodium Chloride 0.45 %) 1,000 mls @ 80 mls/hr IVCONT .[id number] [facility] Last Admin: 02/25/23 22:24 Dose: 80 mls/hr Documented By: CIPRIANO Levothyroxine Sodium (Levothyroxine Sodium 100 Mcg Tablet) 100 mcg PO DAILY@0600 [facility] Last Admin: 02/26/23 05:22 Dose: 100 mcg Documented By: CASTILM Sodium Chloride (0.9 % Sodium Chloride Flush 3 Ml Syringe) 3 ml IVFLUSH QSHIFT [facility] Last Admin: 02/26/23 07:46 Dose: Not Given Documented By: ARMANDO Non-Admin Reason: IV Running Labs 02/25/23 09:54 02/26/23 08:31 Labs: Laboratory Results - last 24 hr 02/25/23 02/26/23 09:54 08:31 MCV 100.8 H MCH 32.8 MCHC 32.6 RDW 12.3 Plt Count 234 MPV 11.6 Absolute Nucleated RBC 0.000 Nucleated RBC % (auto) 0.0 Anion Gap 11 L 11 L Estim Creat Clear Calc 86.7 77.8 Estimated GFR > 60 > 60 Random Glucose 95 Fasting Glucose 145 H Calcium 8.5 8.6 Total Bilirubin 1.3 H Direct Bilirubin 0.3 AST 34 H ALT 26 Alkaline Phosphatase 57 Total Protein 6.0 L Albumin 3.6 Microbiology Microbiology Results: Microbiology 02/24/23 19:56 Blood Culture - Preliminary Blood - Venous No growth after 24 hours. 02/24/23 19:07 Blood Culture - Preliminary Blood - Venous No growth after 24 hours. 02/24/23 19:34 Urine Culture - Preliminary Urine Catheterized - Lorenzo Catheter No growth to date. 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 UTI versus unspecified viral syndrome Complicated by dehydration, hypernatremia Empiric ceftriaxone, follow-up cultures, consider dc of abx if cultures negative x 48 hrs Hypernatremia--mild, resolved with ivf Alzheimer's dementia Will hold mood stabilizers while mental status not at baseline Hypothyroid with elevated TSH Levothyroxine increased from 75 to 100 DVT prophylaxis with Lovenox DNR/DNI Patient with significant alteration in mental status and dehydration, and need IVF and monitoring of acute alteration in mental state Quality Stroke Does the patient have a stroke diagnosis?: No VTE Prior VTE?: No VTE Risk Level:: Medical - moderate - high VTE Device Contraindication: Treatment Not Indicated VTE Drug Contraindication: N/A - Med Ordered
[2023-02-26] MEDS: Sodium Chloride 0.45 % 1,000 ML 80 ML IVCONT ×2 (10:50→19:49)
[2023-02-26] MEDS: Acetaminophen 325 MG TABLET 650 MG PO (12:33)
--- NOTE | 2023-02-26 12:42 | PC.NURSE ---
MD Downs made aware via tiger text pts last Na level 138. states ok to continue on 1/2 NaCl at 80ML/HR. also made aware pt endorsing headache, PRN tylenol administered per orders, pending effectiveness. Pt yelling out help me, help me , when asked what is wrong, pt states you're trying to kill me , made aware, new orders for Zyprexa BID PRN ordered by .
[2023-02-26 15:42] VITALS: BP 107/60; PULSE 77; RESP 16; TEMP 36.6; O2SAT 94
[2023-02-26 19:47] VITALS: BP 134/63; PULSE 80; RESP 14; TEMP 37.3; O2SAT 96
[2023-02-26] MEDS: cefTRIAXone sodium 1 GM in 0.9 % Sodium Chloride 50 ML IV (19:49)
[2023-02-27 03:25] VITALS: BP 143/70; PULSE 74; RESP 18; TEMP 36.6; O2SAT 95
[2023-02-27] MEDS: Levothyroxine Sodium 100 MCG TABLET PO (06:12)
[2023-02-27 07:15] VITALS: BP 131/78; PULSE 85; RESP 20; TEMP 36.3; O2SAT 96
[2023-02-27] MEDS: Enoxaparin Sodium 40 MG/0.4 ML SYRINGE SUBCUT (07:45)
[2023-02-27] MEDS: Escitalopram Oxalate 20 MG TABLET PO (07:45)
[2023-02-27] MEDS: 0.9 % Sodium Chloride Flush 3 ML SYRINGE IVFLUSH ×2 (07:46→15:56)
--- NOTE | 2023-02-27 11:40 | P.PNIM_ITS ---
Subjective Subjective Date of Service: 02/27/23 Interval History: Seen and evaluated alert and confused calmly no reported overnight events Review of Systems Review of Systems: Yes Unobtainable due to mental status Physical Exam 2 Vital Signs: Vital Signs: Last Vital Signs Temp 97.4 F 02/27/23 07:15 Pulse 85 02/27/23 07:15 Resp 20 02/27/23 07:15 BP 131/78 02/27/23 07:15 Pulse Ox 96 02/27/23 07:15 O2 Del Method Room Air 02/27/23 07:15 BMI result Body Mass Index 19.4 Const: Other: General: confused Resp: CTA bilateral CVS: S1,S2,RRR GI: +BS, NT, no distention Skin: No rash Neuro: motor grossly intact, disoriented Psych: appropriate affect Objective Data Active Medications Acetaminophen (Acetaminophen 325 Mg Tablet) 650 mg PO Q6H PRN PRN Reason: Pain, Mild (Pain Scale 1-3) Last Admin: 02/26/23 12:33 Dose: 650 mg Documented By: ARMANDO Enoxaparin Sodium (Enoxaparin Sodium 40 Mg/0.4 Ml Syringe) 40 mg SUBCUT Q24H [facility] Last Admin: 02/27/23 07:45 Dose: 40 mg Documented By: ARMANDO Escitalopram Oxalate (Escitalopram Oxalate 20 Mg Tablet) 20 mg PO DAILY [facility] Last Admin: 02/27/23 07:45 Dose: 20 mg Documented By: ARMANDO Ceftriaxone Sodium 1 gm/ (Sodium Chloride) 50 mls @ 100 mls/hr IV Q24H [facility] Last Infusion: 02/26/23 20:28 Dose: Infused Documented By: BRYAN Levothyroxine Sodium (Levothyroxine Sodium 100 Mcg Tablet) 100 mcg PO DAILY@0600 [facility] Last Admin: 02/27/23 06:12 Dose: 100 mcg Documented By: MARYELLEN Olanzapine (Olanzapine 2.5 Mg Tablet) 2.5 mg PO BID PRN PRN Reason: Agitation Sodium Chloride (0.9 % Sodium Chloride Flush 3 Ml Syringe) 3 ml IVFLUSH QSHIFT [facility] Last Admin: 02/27/23 07:46 Dose: 3 ml Documented By: ARMANDO Labs 02/25/23 09:54 02/26/23 08:31 Microbiology Microbiology Results: Microbiology 02/24/23 19:56 Blood Culture - Preliminary Blood - Venous No growth after 48 hours. 02/24/23 19:07 Blood Culture - Preliminary Blood - Venous No growth after 48 hours. 02/24/23 19:34 Urine Culture - Final Urine Catheterized - Lorenzo Catheter Assessment and Plan (1) Metabolic encephalopathy: Status: Acute (2) Acute dehydration: Status: Acute (3) Acute hypernatremia: Status: Acute Plan 72F PMH alzheimers dementia (jail resident of memory unit), hypothryoid presented with fever and ams Fever, resolved No obvious source of sepsis, lactic acidosis due to dehydration not sepsis, cultures negative at 48 hr Seems like unspecified viral syndrome Complicated by dehydration, hypernatremia (both resolved now) Empiric ceftriaxone, To DC Hypernatremia--mild, resolved with ivf Acute metabolic encephalopathy Multifactorlial from fever, dementia and hypernatremia back to baseline mental status now. Alzheimer's dementia Will hold mood stabilizers while mental status not at baseline Hypothyroid with elevated TSH Levothyroxine increased from 75 to 100 DVT prophylaxis with Lovenox DNR/DNI Patient with significant alteration in mental status and dehydration, and need IVF and monitoring of acute alteration in mental state Quality Stroke Does the patient have a stroke diagnosis?: No VTE Prior VTE?: No VTE Risk Level:: Medical - moderate - high VTE Device Contraindication: Treatment Not Indicated VTE Drug Contraindication: N/A - Med Ordered
--- NOTE | 2023-02-27 14:48 | MHC.CM.PN ---
CM SPOKE WITH PTS S/O, CORINNA WEINSTEIN REPORTS THE PLAN IS FOR PT TO TRANSFER TO [facility] TOMORROW SHE ALSO PROVIDED PTS INSURANCE POLICY NUMBERS , SHE SAYS SOMEONE HAD CALLED ASKING FOR THEM BUT SHE IS UNSURE WHO. POLICY INFORMATION SENT TO [facility] VIA TASK MEDICARE: [id number] [facility], [facility]: [phone]
[2023-02-27 15:31] VITALS: BP 116/71; PULSE 69; RESP 16; TEMP 36.6; O2SAT 96
[2023-02-27] MEDS: cefTRIAXone sodium 1 GM in 0.9 % Sodium Chloride 50 ML IV (19:08)
[2023-02-27 20:00] VITALS: BP 122/76; PULSE 74; RESP 18; TEMP 36.9; O2SAT 95
[2023-02-28] MEDS: 0.9 % Sodium Chloride Flush 3 ML SYRINGE IVFLUSH ×2 (00:09→07:58)
[2023-02-28 04:00] VITALS: BP 140/74; PULSE 76; RESP 18; TEMP 36.6; O2SAT 96
--- NOTE | 2023-02-28 06:26 | PC.NURSE ---
Patient took sips of water from straw, but when given Synthroid, patient held the pill in her mouth and then would not drink from straw in order to swallow pill, and continued talking. Several attempts to get patient to drink further but patient was not following directions. Pill was removed from patient's mouth and discarded.
[2023-02-28 07:31] VITALS: BP 139/84; PULSE 75; RESP 20; TEMP 36.6; O2SAT 94
[2023-02-28] MEDS: Escitalopram Oxalate 20 MG TABLET PO (07:55)
[2023-02-28] MEDS: Enoxaparin Sodium 40 MG/0.4 ML SYRINGE SUBCUT (07:55)
--- NOTE | 2023-02-28 11:44 | MHC.CM.PN ---
Addendum entered by Bridget Marques 02/28/23 12:33: All discharge info has been sent to the facility via [facility]. DC info and MAR were hand faxed to facility at liason's request. Original Note: IMM 02/28/23 Patient is discharged to [place] [facility] for LTC. Transport is booked for 12:30pm pickle solution maker @ [facility]. Spouse notified of transfer time.
--- NOTE | 2023-02-28 12:04 | P.DS_ITS ---
DS: Providers Provider Date of Service: 02/28/23 Date of admission: 02/24/23 21:15 Primary care physician: PONCHO ARIZA DS: Diagnosis Discharge Diagnosis (1) Metabolic encephalopathy: Status: Acute (2) Acute dehydration: Status: Acute (3) Acute hypernatremia: Status: Acute (4) Acute hypokalemia: Status: Acute DS: Summary Hospital Course Hospital Course: Admission note HPI 72F PMH alzheimers dementia (residential resident of memory unit), hypothryoid presented with fever and ams. brought in from [place] for ams, lethargy, fever 101, for one day. at baseline patient is minimally verbal, able to sit up in chair, alert. on presentation was lethargic, difficult to arouse. in ED noted to be dehydrated with bun 49 cr 0.72, sodium 148, elevated tsh 25 (synthroid recently decreased from 100 to 75mcg), ua with wbc, rbc, negative nitrite and bacturia. cxr and cth unremarkable, mental status improved with hydration. Hospital course # Fever, resolved No obvious source of sepsis, lactic acidosis due to dehydration not sepsis, cultures negative at 48 hr. Seems like unspecified viral syndrome. Empiric ceftriaxone until her cultures came back negative. # Hypernatremia mild, resolved with ivf. Encourage fluid intake. # Acute metabolic encephalopathy Multifactorlial from fever, dementia and hypernatremia. back to baseline mental status now. # Alzheimer's dementia at baseline # Hypothyroid with elevated TSH Levothyroxine increased from 75 to 100. To repeat TSH in 3 months Encourage oral intake Increase physical activity as tolerated Time Attestation Discharge coordination time: Greater than 30 minutes Quality: Safe Use of Opioids Does Pt have an Active Cancer Diagnosis on the Problem List?: No Quality: Stroke Does the patient have a stroke diagnosis?: No Physical Exam Vital Signs: Vital Signs: Last Vital Signs Temp 98 F 02/28/23 07:31 Pulse 75 02/28/23 07:31 Resp 20 02/28/23 07:31 BP 139/84 02/28/23 07:31 Pulse Ox 94 02/28/23 07:31 O2 Del Method Room Air 02/28/23 07:31 BMI result Body Mass Index 19.4 Const: Other: General: confused Resp: CTA bilateral CVS: S1,S2,RRR GI: +BS, NT, no distention Skin: No rash Neuro: motor grossly intact, disoriented Psych: appropriate affect DS: Data Data Completed and Pending Labs on day of discharge: Preliminary micro results at discharge 02/24/23 19:56 Blood Culture - Preliminary Blood - Venous No growth after 48 hours. 02/24/23 19:07 Blood Culture - Preliminary Blood - Venous No growth after 48 hours. Imaging Chest x-ray: Radiologist's impression: ITS Impressions Chest X-Ray 02/24/23 19:20 IMPRESSION: No acute cardiopulmonary findings. Head CT 02/24/23 19:38 IMPRESSION: No acute intracranial abnormality including hemorrhage, mass effect, hydrocephalus, or acute territorial edematous infarction. Discharge Plan Discharge Anticipated Discharge Date/Time: 02/28/23 11:48 Patient Disposition: er [facility] Discharge Diagnosis: Electrolytes imbalance Altered mentation Referrals: Tali Alfredo [place] [Outside] - 1 Week PONCHO ARIZA [Primary Care Provider] - 1 Week Discharge Medications: Continued escitalopram oxalate 20 mg tablet 20 mg PO DAILY olanzapine 2.5 mg tablet 2.5 mg PO BID PRN (Reason: Agitation) Changed levothyroxine 100 mcg tablet 100 mcg PO DAILY Qty: 90 0RF Discharge Orders: Discharge Order (Routine); Ordered 02/28/23 Ordered By: Jim Solares Diet: Advance to usual diet Activity on Discharge: As tolerated Stand Alone Forms: Patient Portal Discharge page Care Plan Goals: Read below Health Concerns: Read below Plan of Treatment: Read below Assessment: Encourage oral intake Increase physical activity as tolerated
--- NOTE | 2023-02-28 12:58 | P.CDIM_ITS ---
PROVIDER RESPONSE TEXT: To clarify, the appropriate diagnosis supported by the clinical indicators: Acute QUERY TEXT: PHYSICIAN'S DOCUMENTATION REQUEST Date of Query: 02/28/2023 09:09 AM EST Patient Name: Giselle Mancia Admit Date: 02/25/2023 Dear Jim Solares, A review of the medical record indicates additional documentation may be needed. Please review below and update the documentation accordingly. Clinical Indicators: LA on 02/24/23: 2.5 Per Hospitalist Progress Note 02/27/23: lactic acidosis due to dehydration not sepsis Clarify which of the following accurately represents the acuity of the Lactic acidosis. Possible options might include: Acute Acute on chronic Compensated Chronic stable condition Remission Other (explain) Clinically unable to determine (explain) Thank you, Alise Robles RN Use of terms such as suspected, likely, concern for, or probable (associated with a specific diagnosi s that is being evaluated, monitored, or treated as if it exists) are acceptable and can be coded in the inpatient se tting, when documented at the time of discharge. Please use your independent medical judgment in providing your response. THIS QUERY IS PART OF THE PERMANENT MEDICAL RECORD
== END 2023-02-28 12:40 | DRG 865 ==
LOC: HO.ED 21:18 → HO.EDOVER 21:31 → HO.S3 02-25 06:22
PROVIDERS: Internal Medicine; Admitting Provider Internal Medicine; Emergency Provider Emergency Medicine; PCP Emergency Medicine; Visit Provider Student in an Organized Health Care Education/Training Program
DX: B34.9 Viral infection, unspecified (principal); G93.41 Metabolic encephalopathy; E87.21 Acute metabolic acidosis; E87.0 Hyperosmolality and hypernatremia; E86.0 Dehydration; G30.9 Alzheimer's disease, unspecified; F02.80 Dementia in other diseases classified elsewhere, unspecified severity, without behavioral disturbance, psychotic disturbance, mood disturbance, and anxiety; E03.9 Hypothyroidism, unspecified; E87.6 Hypokalemia; Z66 Do not resuscitate; Z20.822 Contact with and (suspected) exposure to COVID-19; Z79.890 Hormone replacement therapy; Z79.899 Other long term (current) drug therapy
CPT/HCPCS: 36415; 70450; 71045; 80048; 80076; 80307; 81001; 82140; 82803; 83605; 83690; 83735; 84439; 84443; 84484; 85025; 85027; 85610; 87040; 87086; 87502; 87635; 93005; 99285; J0696; J1650; J3480

== ENCOUNTER → 2023-02-24 18:51 | Outpatient (BNV) | payer MEDICARE, OTHER, SELFPAY | PROVIDERS: Admitting Provider Internal Medicine; Emergency Provider Emergency Medicine; Visit Provider Internal Medicine Cardiovascular Disease | DX: R94.31 Abnormal electrocardiogram [ECG] [EKG] (principal) | CPT/HCPCS: 93010 ==

== ENCOUNTER → 2023-02-24 21:15 | Outpatient (BNV) | payer MEDICARE, OTHER, SELFPAY | PROVIDERS: Admitting Provider Internal Medicine; Emergency Provider Emergency Medicine; Visit Provider Internal Medicine | DX: G93.41 Metabolic encephalopathy (principal); E86.0 Dehydration; E87.0 Hyperosmolality and hypernatremia; E87.6 Hypokalemia | CPT/HCPCS: 99223; 99232; 99239 ==